=== PATIENT | male | born 1950 | race Caucasian/White ===

== ENCOUNTER 2022-02-24 11:20 | Emergency (ER) | payer MEDICARE, OTHER ==
[~2022-02-24] VITALS: Ht 185 cm; Wt 122.0 kg
[2022-02-24] MEDS ORDERED: EPINEPHrine 0.1 MG/ML 10 ML (HOSPIRA) SYR IJ ONE (11:25)
[2022-02-24] MEDS ORDERED: SODIUM BICARB 8.4% 50 MEQ/50 ML (ABBOTT) SYR INJ ONE (11:25)
[2022-02-24] MEDS ORDERED: NS IV 1000 ML 1,000 ML ONE ×2 (11:36→12:06)
[2022-02-24 12:09] LABS: HEMATOCRIT 42 % (40-54); HEMOGLOBIN 13.3 g/dL (13.3-17.7); MEAN CORPUSCULAR HEMOGLOBIN 31 pg (25-34); MEAN CORPUSCULAR HGB CONC 32 g/dL (32-36); MEAN CORPUSCULAR VOLUME 96 fL (80-99); MEAN PLATELET VOLUME 9.8 fL (9.0-12.2); PLATELET COUNT 142 10^3/uL (130-400); WHITE BLOOD COUNT 10.5 10^3/uL (4.3-11.0)
[2022-02-24 12:12] LABS: ALBUMIN 2.9 GM/DL (3.2-4.5); POTASSIUM 4.8 MMOL/L (3.6-5.0)
[2022-02-24 12:13] LABS: CALCIUM 8.4 MG/DL (8.5-10.1)
[2022-02-24 12:14] LABS: TOTAL PROTEIN 5.4 GM/DL (6.4-8.2)
[2022-02-24 12:16] LABS: BILIRUBIN,TOTAL 1.4 MG/DL (0.1-1.0)
[2022-02-24 12:18] LABS: CREATININE SERUM 1.62 MG/DL (0.60-1.30)
[2022-02-24 12:21] LABS: MAGNESIUM 2.4 MG/DL (1.6-2.4)
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
== END 2022-02-24 14:10 | disposition expired ==
LOC: EDUNIT# 11:23 → ER 11:24
DX: I46.9 Cardiac arrest, cause unspecified (principal); S60.511A Abrasion of right hand, initial encounter; S50.311A Abrasion of right elbow, initial encounter; I48.91 Unspecified atrial fibrillation; Z79.01 Long term (current) use of anticoagulants; X58.XXXA Exposure to other specified factors, initial encounter
CPT/HCPCS: 31500; 36415; 36680; 80053; 82947; 83735; 84484; 85027; 99291; 99292